=== PATIENT | female | born 1945 | race African-American/Black ===

== ENCOUNTER 2017-05-29 12:52 | Emergency (ER) | payer MEDICARE ==
[~2017-05-29] VITALS: Ht 172.7 cm; Wt 65.0 kg
[~2017-05-29 12:52] MED LIST: APAP/HYDRO325 MG/10 PO; ATENOLOL25 MG OR; ATENOLOL50 MG OR; ATENOLOL50 MG PO; AUGMENTIN875TAB PO; AVAPRO OR; AVAPRO PO; AVAPRO150 MG PO; CELEBREX100 M1 OR; CITALOPRAM10 MG PO; CLONAZEPAM0.5 MG OR; FIORICET PO; HYDROCO/APAP1 T13 PO; KLONOPIN0.5 MG OR; LISINOPRIL10 MG OR; LISINOPRIL10 MG PO; LORTAB 10 OR; LORTAB 5 OR; LORTAB5 OR; LOSARTAN POT100 MG PO; MELOXICAM7.5 MG OR; METOPROLOL50 M1 OR; MS CONTIN30 MG PO; NAPROSYN250 MG OR; NORCO1 TAB PO; PERCOCET1 TA4 PO; TENORMIN PO; TENORMIN50 MG PO; ZESTRIL OR
[2017-05-29 14:35] VITALS: BP 129/74
== END 2017-05-29 14:35 | disposition home or self-care (01) ==
LOC: ED 12:52
DX: S00.83XA Contusion of other part of head, initial encounter (principal); W22.8XXA Striking against or struck by other objects, initial encounter; Y93.89 Activity, other specified; Y92.000 Kitchen of unspecified non-institutional (private) residence as the place of occurrence of the external cause

== ENCOUNTER 2017-07-24 19:46 | Emergency (ER) | payer MEDICARE ==
[~2017-07-24] VITALS: Ht 172.7 cm; Wt 61.3 kg
[2017-07-24 21:20] LABS: HEMATOCRIT 31.8 % (37.0-47.0); HEMOGLOBIN 10.8 g/dl (12.0-16.0); IMMATURE GRANULOCYTES 0.3 % (0.0-1.0); MEAN CORPUSCULAR HGB 31.6 pG CALC (26.0-32.0); NEUT# 4.42 thou/uL (2.00-7.15); RED BLOOD COUNT 3.42 mill/uL (4.20-5.60); RED CELL DISTRI WIDTH 13.8 % (11.5-15.5)
[2017-07-24] MEDS ORDERED: TENORMIN PO (21:22)
[2017-07-24 21:35] LABS: ALBUMIN 3.8 g/dL (3.2-5.0); ALKALINE PHOSPHATASE 119 u/l (38-126); ANION GAP 14 (6-22 (CALC)); BILIRUBIN, TOTAL 0.4 mg/dL (0.0-1.4); BUN 12 mg/dL (8-23); BUN/CREATININE RATIO 14 (12-20 (CALC)); CALCIUM 9.3 mg/dL (8.4-10.2); CARBON DIOXIDE 24 mmol/l (22-30); CHLORIDE 106 mmol/l (95-108); CREATININE 0.8 mg/dL (0.5-1.0); GFR > 60 ML/MIN (>=60 (CALC)); GFR FOR AFR.AMER. > 60 ML/MIN (>=60 (CALC)); GLUCOSE 78 mg/dL (82-115); POTASSIUM 3.4 mmol/l (3.5-5.1); SGOT/AST 22 u/l (9-36); SGPT/ALT 31 u/l (11-66); SODIUM 141 mmol/l (137-146)
[2017-07-24 22:17] VITALS: BP 164/93
== END 2017-07-24 22:18 | disposition home or self-care (01) ==
LOC: ED 19:46
PROVIDERS: Emergency Medicine
DX: S00.93XA Contusion of unspecified part of head, initial encounter (principal); I10 Essential (primary) hypertension; W22.09XA Striking against other stationary object, initial encounter; Y92.009 Unspecified place in unspecified non-institutional (private) residence as the place of occurrence of the external cause; Z91.14 Patient's other noncompliance with medication regimen

== ENCOUNTER 2018-01-19 14:19 | Emergency (ER) | payer MEDICARE ==
[~2018-01-19] VITALS: Ht 172.7 cm; Wt 70.4 kg
[2018-01-19] MEDS ORDERED: AVAPRO PO (14:32)
[2018-01-19] MEDS ORDERED: TENORMIN50 MG PO (15:38)
[2018-01-19] MEDS ORDERED: AVAPRO150 MG PO (15:38)
[2018-01-19 15:59] VITALS: BP 147/62
== END 2018-01-19 15:51 | disposition home or self-care (01) ==
LOC: ED 14:19
DX: I10 Essential (primary) hypertension (principal); M19.90 Unspecified osteoarthritis, unspecified site; G89.29 Other chronic pain; M54.9 Dorsalgia, unspecified; Z91.19 Patient's noncompliance with other medical treatment and regimen

== ENCOUNTER 2018-01-20 13:59 | Emergency (ER) | payer MEDICARE ==
[~2018-01-20] VITALS: Ht 172.7 cm; Wt 70.0 kg
[2018-01-20 14:31] VITALS: BP 126/76
== END 2018-01-20 14:35 | disposition home or self-care (01) ==
LOC: ED 13:59
DX: S00.83XA Contusion of other part of head, initial encounter (principal); S09.90XA Unspecified injury of head, initial encounter; R51 Headache; W22.09XA Striking against other stationary object, initial encounter; Y93.9 Activity, unspecified; Y92.009 Unspecified place in unspecified non-institutional (private) residence as the place of occurrence of the external cause

== ENCOUNTER 2018-05-26 10:05 | Emergency (ER) | payer MEDICARE, MEDICAID ==
[~2018-05-26] VITALS: Ht 172.7 cm; Wt 54.0 kg
[2018-05-26 11:20] VITALS: BP 148/80
== END 2018-05-26 11:20 | disposition home or self-care (01) ==
LOC: ED 10:05
DX: S00.83XA Contusion of other part of head, initial encounter (principal); S20.211A Contusion of right front wall of thorax, initial encounter; I10 Essential (primary) hypertension; M19.90 Unspecified osteoarthritis, unspecified site; G89.29 Other chronic pain; M54.9 Dorsalgia, unspecified; W18.39XA Other fall on same level, initial encounter; Y92.000 Kitchen of unspecified non-institutional (private) residence as the place of occurrence of the external cause

== ENCOUNTER 2018-05-27 22:48 | Emergency (ER) | payer MEDICARE, MEDICAID ==
[~2018-05-27] VITALS: Ht 172.7 cm; Wt 60.0 kg
[2018-05-28] MEDS ORDERED: NAPROSYN500 MG PO (00:09)
[2018-05-28 00:14] VITALS: BP 147/82
[2018-05-28] MEDS ORDERED: CELEXA20 MG PO (15:00)
== END 2018-05-28 00:42 | disposition home or self-care (01) ==
LOC: ED 22:48
DX: S09.90XA Unspecified injury of head, initial encounter (principal); I10 Essential (primary) hypertension; M54.9 Dorsalgia, unspecified; G89.29 Other chronic pain; W01.0XXA Fall on same level from slipping, tripping and stumbling without subsequent striking against object, initial encounter; Y92.009 Unspecified place in unspecified non-institutional (private) residence as the place of occurrence of the external cause

== ENCOUNTER 2018-05-28 13:58 | Emergency (ER) | payer MEDICARE, MEDICAID ==
[~2018-05-28] VITALS: Ht 172.7 cm; Wt 45.0 kg
[~2018-05-28 13:58] MED LIST changes: +NAPROSYN500 MG PO
[2018-05-28] MEDS ORDERED: CELEXA20 MG PO (15:00)
[2018-05-28 15:10] VITALS: BP 132/77
== END 2018-05-28 15:40 | disposition home or self-care (01) ==
LOC: ED 13:58
DX: R00.2 Palpitations (principal); R42 Dizziness and giddiness; F19.230 Other psychoactive substance dependence with withdrawal, uncomplicated; Y92.009 Unspecified place in unspecified non-institutional (private) residence as the place of occurrence of the external cause; I10 Essential (primary) hypertension

== ENCOUNTER 2018-08-22 08:04 | Emergency (ER) | payer MEDICARE, MEDICAID ==
[~2018-08-22] VITALS: Ht 167.6 cm; Wt 59.0 kg
[~2018-08-22 08:04] MED LIST changes: +CELEXA20 MG PO
[2018-08-22] MEDS ORDERED: MELOXICAM7.5 MG PO (08:16)
[2018-08-22] MEDS ORDERED: HYDROCODONE/ACE1 TAB PO (08:19)
[2018-08-22 09:35] VITALS: BP 143/71
== END 2018-08-22 09:35 | disposition home or self-care (01) ==
LOC: ED 08:04
DX: S00.83XA Contusion of other part of head, initial encounter (principal); I10 Essential (primary) hypertension; W22.8XXA Striking against or struck by other objects, initial encounter; Y93.01 Activity, walking, marching and hiking; Y92.002 Bathroom of unspecified non-institutional (private) residence as the place of occurrence of the external cause

== ENCOUNTER 2018-11-01 17:11 | Emergency (ER) | payer MEDICARE ==
[~2018-11-01] VITALS: Ht 167.6 cm; Wt 59.1 kg
[~2018-11-01 17:11] MED LIST changes: +HYDROCODONE/ACE1 TAB PO; +MELOXICAM7.5 MG PO
[2018-11-01 19:01] LABS: URINE BILIRUBIN - DIPSTICK NEGATIVE (NEGATIVE); URINE BLOOD DIPSTICK SMALL (NEGATIVE); URINE COLOR YELLOW; URINE GLUCOSE - DIPSTICK NEGATIVE (NEGATIVE); URINE KETONE TRACE mg/dL (NEGATIVE); URINE LEUK ESTERASE NEGATIVE (NEGATIVE); URINE NITRITE - DIPSTICK NEGATIVE (Negative); URINE PROTEIN - DIPSTICK TRACE mg/dL (NEG-TRACE); URINE SPECIFIC GRAVITY >=1.030; URINE UROBILINOGEN - DIPSTICK 0.2 E.U./dL (0.2)
[2018-11-01 19:02] LABS: URINE SQUAMOUS EPITHELIAL CELL FEW EPI/hpf (0-FEW)
[2018-11-01 19:16] LABS: URINE CALCIUM OXALATE CRYSTALS FEW lpf; URINE YEAST FEW hpf
[2018-11-01 19:50] LABS: HEMATOCRIT 36.6 % (37.0-47.0); IMMATURE GRANULOCYTES 0.3 % (0.0-5.0); MEAN CELL VOLUME 98.1 fL CALC (80.0-100.0); MEAN CORPUSCULAR HGB 32.2 pG CALC (26.0-32.0); MEAN CORPUSCULAR HGB CONC 32.8 g/L CALC (32.0-36.0); NEUT# 3.97 thou/uL (2.00-7.15); RED BLOOD COUNT 3.73 mill/uL (4.20-5.60); RED CELL DISTRI WIDTH 14.6 % (11.5-15.5)
[2018-11-01 19:56] LABS: ALKALINE PHOSPHATASE 157 u/l (38-126); ANION GAP 15 (6-22 (CALC)); BILIRUBIN, TOTAL 0.3 mg/dL (0.0-1.4); BUN 23 mg/dL (8-23); BUN/CREATININE RATIO 30 (12-20 (CALC)); CARBON DIOXIDE 24 mmol/l (22-30); CHLORIDE 110 mmol/l (95-108); CREATININE 0.8 mg/dL (0.5-1.0); GFR > 60 ML/MIN (>=60 (CALC)); GFR FOR AFR.AMER. > 60 ML/MIN (>=60 (CALC)); SGOT/AST 38 u/l (9-36); SODIUM 144 mmol/l (137-146); TOTAL PROTEIN 7.6 g/dL (6.3-8.2)
[2018-11-01] MEDS ORDERED: AVAPRO PO (22:00)
[2018-11-01 22:03] VITALS: BP 148/91
== END 2018-11-01 22:26 | disposition left against medical advice (07) ==
LOC: ED 17:11
PROVIDERS: Emergency Medicine
DX: R10.9 Unspecified abdominal pain (principal); R93.5 Abnormal findings on diagnostic imaging of other abdominal regions, including retroperitoneum; I10 Essential (primary) hypertension; M19.90 Unspecified osteoarthritis, unspecified site; M54.9 Dorsalgia, unspecified; G89.29 Other chronic pain; F41.9 Anxiety disorder, unspecified; F32.9 Major depressive disorder, single episode, unspecified; Z91.19 Patient's noncompliance with other medical treatment and regimen
CPT/HCPCS: Q9967

== ENCOUNTER 2019-07-17 18:32 | Emergency (ER) | payer MEDICARE ==
[~2019-07-17] VITALS: Ht 167.6 cm; Wt 59.0 kg
[2019-07-17 18:58] LABS: IMMATURE GRANULOCYTES 0.2 % (0.0-5.0); MEAN CELL VOLUME 92.9 fL CALC (80.0-100.0); MEAN CORPUSCULAR HGB 31.2 pG CALC (26.0-32.0); MEAN CORPUSCULAR HGB CONC 33.6 g/L CALC (32.0-36.0); NEUT# 3.01 thou/uL (2.00-7.15); RED BLOOD COUNT 2.66 mill/uL (4.20-5.60); RED CELL DISTRI WIDTH 15.5 % (11.5-15.5)
[2019-07-17 18:59] LABS: HEMATOCRIT 24.7 % (37.0-47.0); HEMOGLOBIN 8.3 g/dl (12.0-16.0)
[2019-07-17 19:25] LABS: ALBUMIN 3.4 g/dL (3.2-5.0); ALKALINE PHOSPHATASE 114 u/l (38-126); BUN 20 mg/dL (8-23); BUN/CREATININE RATIO 23 (12-20 (CALC)); CARBON DIOXIDE 23 mmol/l (22-30); CHLORIDE 107 mmol/l (95-108); CREATININE 0.9 mg/dL (0.5-1.0); GFR > 60 ML/MIN (>=60 (CALC)); GFR FOR AFR.AMER. > 60 ML/MIN (>=60 (CALC)); SGOT/AST 54 u/l (9-36); SODIUM 141 mmol/l (137-146); TOTAL PROTEIN 6.7 g/dL (6.3-8.2)
[2019-07-17 19:26] LABS: ANION GAP 14 (6-22 (CALC)); BILIRUBIN, TOTAL 0.5 mg/dL (0.0-1.4); POTASSIUM 3.1 mmol/l (3.5-5.1)
[2019-07-17 19:37] LABS: MYOGLOBIN 271 ng/mL (0 - 62)
[2019-07-17 19:44] LABS: URINE BILIRUBIN - DIPSTICK NEGATIVE (NEGATIVE); URINE BLOOD DIPSTICK TRACE-INTACT (NEGATIVE); URINE COLOR YELLOW; URINE GLUCOSE - DIPSTICK NEGATIVE (NEGATIVE); URINE KETONE NEGATIVE (NEGATIVE); URINE LEUK ESTERASE NEGATIVE (NEGATIVE); URINE NITRITE - DIPSTICK NEGATIVE (Negative); URINE PROTEIN - DIPSTICK NEGATIVE (NEG-TRACE); URINE SPECIFIC GRAVITY <=1.005; URINE UROBILINOGEN - DIPSTICK 0.2 E.U./dL (0.2)
[2019-07-17] MEDS ORDERED: AVAPRO150 MG PO (20:11)
[2019-07-17] MEDS ORDERED: K-DUR/KLOR-CON20 MEQ PO (20:11)
[2019-07-17] MEDS ORDERED: FERROUS SULF325 M3 PO (20:11)
[2019-07-17 20:53] VITALS: BP 163/70
== END 2019-07-17 20:53 | disposition home or self-care (01) ==
LOC: ED 18:32
PROVIDERS: Family Medicine
DX: I10 Essential (primary) hypertension (principal); E87.6 Hypokalemia; D64.9 Anemia, unspecified; T46.5X6A Underdosing of other antihypertensive drugs, initial encounter; Z91.128 Patient's intentional underdosing of medication regimen for other reason; R42 Dizziness and giddiness

== ENCOUNTER 2020-04-25 15:09 | Emergency (ER) | payer MEDICARE ==
[~2020-04-25] VITALS: Ht 167.6 cm; Wt 74.0 kg
[~2020-04-25 15:09] MED LIST changes: +FERROUS SULF325 M3 PO; +K-DUR/KLOR-CON20 MEQ PO
[2020-04-25] MEDS ORDERED: AVAPRO150 MG PO ×2 (17:11)
[2020-04-25 17:21] VITALS: BP 147/91
== END 2020-04-25 17:21 | disposition home or self-care (01) ==
LOC: ED 15:09
DX: M25.562 Pain in left knee (principal); M25.561 Pain in right knee; G89.29 Other chronic pain; I10 Essential (primary) hypertension; T46.5X6A Underdosing of other antihypertensive drugs, initial encounter; W18.30XA Fall on same level, unspecified, initial encounter; Z76.0 Encounter for issue of repeat prescription; Z91.128 Patient's intentional underdosing of medication regimen for other reason

== ENCOUNTER 2020-05-24 11:54 | Emergency (ER) | payer MEDICARE, MEDICAID ==
[~2020-05-24] VITALS: Ht 167.6 cm; Wt 52.2 kg
[2020-05-24 12:38] LABS: ALBUMIN 3.5 g/dL (3.2-5.0); ALKALINE PHOSPHATASE 76 u/l (38-126); BUN 20 mg/dL (8-23); BUN/CREATININE RATIO 26 (12-20 (CALC)); CHLORIDE 101 mmol/l (95-108); CREATININE 0.8 mg/dL (0.5-1.0); GFR > 60 ML/MIN (>=60 (CALC)); GFR FOR AFR.AMER. > 60 ML/MIN (>=60 (CALC)); POTASSIUM 3.3 mmol/l (3.5-5.1); SGOT/AST 39 u/l (9-36); SODIUM 137 mmol/l (137-146); TOTAL PROTEIN 6.5 g/dL (6.3-8.2)
[2020-05-24 12:39] LABS: IMMATURE GRANULOCYTES 0.4 % (0.0-5.0); MEAN CELL VOLUME 95.2 fL CALC (80.0-100.0); MEAN CORPUSCULAR HGB 31.3 pG CALC (26.0-32.0); MEAN CORPUSCULAR HGB CONC 32.9 g/dL CAL (32.0-36.0); NEUT# 8.92 thou/uL (2.00-7.15); RED BLOOD COUNT 3.51 mill/uL (4.20-5.60)
[2020-05-24 12:42] LABS: PROTHROMBIN TIME 9.9 SECONDS (9.0-12.5)
[2020-05-24 12:44] LABS: ANION GAP 11 (6-22 (CALC)); BILIRUBIN, TOTAL 0.8 mg/dL (0.0-1.4); CARBON DIOXIDE 28 mmol/l (22-30)
[2020-05-24 12:45] LABS: HEMATOCRIT 33.4 % (37.0-47.0)
[2020-05-24 12:50] LABS: MYOGLOBIN 133 ng/mL (0 - 62)
[2020-05-24 15:17] VITALS: BP 114/59
== END 2020-05-24 15:17 | disposition short-term general hospital (02) ==
LOC: ED 11:54
DX: I63.9 Cerebral infarction, unspecified (principal); I10 Essential (primary) hypertension; G81.94 Hemiplegia, unspecified affecting left nondominant side; R29.706 NIHSS score 6

== ENCOUNTER 2020-06-13 10:40 | Observation (INO) | payer MEDICARE, MEDICAID ==
[~2020-06-13] VITALS: Ht 167.6 cm; Wt 52.0 kg
[2020-06-13] MEDS ORDERED: AMLODIPINE BESY10 MG PO (11:09)
[2020-06-13] MEDS ORDERED: LIPITOR40 M1 PO (11:09)
[2020-06-13] MEDS ORDERED: ASPIRIN81 MG PO (11:09)
[2020-06-13] MEDS ORDERED: [UNRECOGNIZED DRUG - OTHER] PO (11:11)
[2020-06-13] MEDS ORDERED: CLONIDINE0.1 MG PO (11:12)
[2020-06-13 11:21] LABS: HEMATOCRIT 33.8 % (37.0-47.0); HEMOGLOBIN 10.4 g/dl (12.0-16.0); MEAN CELL VOLUME 100.9 fL CALC (80.0-100.0); MEAN CORPUSCULAR HGB CONC 30.8 g/dL CAL (32.0-36.0); NEUT# 9.88 thou/uL (2.00-7.15); RED BLOOD COUNT 3.35 mill/uL (4.20-5.60)
[2020-06-13 11:35] LABS: ACT PARTIAL THROMBO TIME 21.4 SECONDS (20.0-32.5); PROTHROMBIN TIME 10.4 SECONDS (9.0-12.5)
[2020-06-13 11:36] LABS: ALBUMIN 3.4 g/dL (3.2-5.0); ALKALINE PHOSPHATASE 141 u/l (38-126); AMYLASE 70 u/l (30-110); ANION GAP 9 (6-22 (CALC)); BILIRUBIN, TOTAL 0.5 mg/dL (0.0-1.4); BUN 20 mg/dL (8-23); BUN/CREATININE RATIO 33 (12-20 (CALC)); CARBON DIOXIDE 29 mmol/l (22-30); CHLORIDE 100 mmol/l (95-108); CREATININE 0.6 mg/dL (0.5-1.0); GFR > 60 ML/MIN (>=60 (CALC)); GFR FOR AFR.AMER. > 60 ML/MIN (>=60 (CALC)); LIPASE 30 u/l (23-300); POTASSIUM 4.3 mmol/l (3.5-5.1); SGOT/AST 47 u/l (9-36); SODIUM 134 mmol/l (137-146)
[2020-06-13 11:39] LABS: D-DIMER 3.42 mg/L (0.19-0.60)
[2020-06-13 11:46] LABS: MYOGLOBIN 27 ng/mL (0 - 62)
[2020-06-13 17:00] VITALS: BP 133/81
[2020-06-13 19:00] VITALS: BP 113/58
[2020-06-13 19:02] LABS: URINE BILIRUBIN - DIPSTICK NEGATIVE (NEGATIVE); URINE BLOOD DIPSTICK NEGATIVE (NEGATIVE); URINE COLOR YELLOW; URINE GLUCOSE - DIPSTICK NEGATIVE (NEGATIVE); URINE KETONE NEGATIVE (NEGATIVE); URINE NITRITE - DIPSTICK NEGATIVE (Negative); URINE PROTEIN - DIPSTICK NEGATIVE (NEG-TRACE); URINE SPECIFIC GRAVITY 1.015; URINE UROBILINOGEN - DIPSTICK 0.2 E.U./dL (0.2)
[2020-06-13 19:12] LABS: URINE LEUK ESTERASE MODERATE (NEGATIVE)
[2020-06-13 19:22] LABS: URINE RBC 0-2 RBC/hpf (0-5); URINE SQUAMOUS EPITHELIAL CELL FEW EPI/hpf (0-FEW)
[2020-06-13] MEDS ORDERED: LISINOPRIL40 MG PO (21:33)
[2020-06-13] MEDS ORDERED: LIDODERM5 % EX (21:34)
[2020-06-13] MEDS ORDERED: PREDNISONE20 MG PO (21:35)
[2020-06-13] MEDS ORDERED: COLACE100 MG PO (21:37)
[2020-06-13] MEDS ORDERED: GABAPENTIN300 M2 (21:41)
[2020-06-13] MEDS ORDERED: LORTAB 1010 MG PO (21:43)
[2020-06-13 23:55] VITALS: BP 136/71
[2020-06-14 03:40] VITALS: BP 125/73
[2020-06-14 05:45] LABS: HEMATOCRIT 34.6 % (37.0-47.0); HEMOGLOBIN 10.6 g/dl (12.0-16.0); IMMATURE GRANULOCYTES 0.5 % (0.0-5.0); MEAN CELL VOLUME 100.3 fL CALC (80.0-100.0); MEAN CORPUSCULAR HGB 30.7 pG CALC (26.0-32.0); MEAN CORPUSCULAR HGB CONC 30.6 g/dL CAL (32.0-36.0); NEUT# 7.19 thou/uL (2.00-7.15); RED BLOOD COUNT 3.45 mill/uL (4.20-5.60); RED CELL DISTRI WIDTH 14.8 % (11.5-15.5)
[2020-06-14 06:11] LABS: ALBUMIN 3.5 g/dL (3.2-5.0); ALKALINE PHOSPHATASE 95 u/l (38-126); ANION GAP 8 (6-22 (CALC)); BILIRUBIN, TOTAL 0.5 mg/dL (0.0-1.4); BUN 20 mg/dL (8-23); BUN/CREATININE RATIO 28 (12-20 (CALC)); CALCULATED LDLCHOLESTEROL 50 mg/dL (62-129 (CALC)); CARBON DIOXIDE 30 mmol/l (22-30); CHLORIDE 101 mmol/l (95-108); CHOLESTEROL HDL RATIO 1.7 (<4.4 (CALC)); CREATININE 0.7 mg/dL (0.5-1.0); GFR > 60 ML/MIN (>=60 (CALC)); GFR FOR AFR.AMER. > 60 ML/MIN (>=60 (CALC)); HDL CHOLESTEROL 104 mg/dL (>=40); MAGNESIUM 2.3 mg/dL (1.6-2.3); POTASSIUM 4.2 mmol/l (3.5-5.1); SGOT/AST 55 u/l (9-36); SODIUM 135 mmol/l (137-146); TOTAL CHOLESTEROL 175 mg/dl (0-199); TOTAL PROTEIN 6.1 g/dL (6.3-8.2); TOTAL TRIGLYCERIDES 103 mg/dl (30-149); VLDL CHOLESTROL 21 mg/dl (0-48 (CALC))
[2020-06-14 06:52] VITALS: BP 133/67
[2020-06-14] MEDS ORDERED: MILK OF MAG30 ML/UDC PO (10:12)
[2020-06-14] MEDS ORDERED: GLYCOLAX3350 N1 PO (10:12)
[2020-06-14 10:30] VITALS: BP 115/57
[2020-06-14 15:00] VITALS: BP 106/58
== END 2020-06-14 15:40 ==
LOC: ED 10:40 → ED-I 11:25 → ED 11:25 → ED-I 13:30 → ED 14:04 → ED-I 14:05 → MS2 14:05
PROVIDERS: Family Medicine; Nurse Practitioner; ADMIT Internal Medicine; ATTEND Internal Medicine
DX: R07.9 Chest pain, unspecified (principal); K59.00 Constipation, unspecified; I10 Essential (primary) hypertension; M54.9 Dorsalgia, unspecified; G89.29 Other chronic pain; F32.9 Major depressive disorder, single episode, unspecified; F41.9 Anxiety disorder, unspecified; Z79.891 Long term (current) use of opiate analgesic; Z20.828 Contact with and (suspected) exposure to other viral communicable diseases
CPT/HCPCS: G0378; J1650; Q9967